=== PATIENT | female | born 1975 | race Two or more races ===

== ENCOUNTER 2017-11-14 09:22 | Outpatient (CLI) | payer OTHER ==
[~2017-11-14 09:22] MED LIST: AMARIL; GLUMETZA1000 MG; LEVSIN/SL0.125 MG PO; METFORMIN HCL500 MG; NEURONTIN300 MG; OXYCODON HCL-AP1 TA1 PO; SIMVASTATIN40 MG; TRAMADOL HCL50 MG PO; [UNRECOGNIZED DRUG - OTHER]
== END 2017-11-14 13:27 | disposition home or self-care (01) ==
LOC: TOM 09:22
DX: R10.9 Unspecified abdominal pain (principal)

== ENCOUNTER 2017-12-28 17:04 | Emergency (ER) | payer OTHER ==
[~2017-12-28] VITALS: Ht 154.9 cm; Wt 97.5 kg
[2017-12-28] MEDS ORDERED: ZETIA10 MG (17:36)
[2017-12-28] MEDS ORDERED: CLONAZEPAM1 MG (17:36)
[2017-12-28] MEDS ORDERED: TRAMADOL HCL50 MG (17:36)
== END 2017-12-28 20:22 | disposition home or self-care (01) ==
LOC: ER 17:04
DX: S93.491A Sprain of other ligament of right ankle, initial encounter (principal); X50.9XXA Other and unspecified overexertion or strenuous movements or postures, initial encounter; Y93.01 Activity, walking, marching and hiking; Y92.89 Other specified places as the place of occurrence of the external cause; Y99.8 Other external cause status

== ENCOUNTER → 2018-12-04 | Emergency (ER) | payer OTHER ==
[~2018-12-04] VITALS: Ht 154.9 cm; Wt 91.6 kg
[~2018-12-04] MED LIST changes: +CLONAZEPAM1 MG; +TRAMADOL HCL50 MG; +ZETIA10 MG
== END | disposition home or self-care (01) ==
LOC: ER 20:17
DX: R07.89 Other chest pain (principal); F41.8 Other specified anxiety disorders; E11.65 Type 2 diabetes mellitus with hyperglycemia

== ENCOUNTER 2019-09-18 08:55 | Outpatient (CLI) | payer OTHER | END 2019-09-18 08:58 | disposition home or self-care (01) | LOC: SONOGRAMA 08:55 | DX: E03.8 Other specified hypothyroidism (principal); E04.2 Nontoxic multinodular goiter ==

== ENCOUNTER 2020-03-07 15:33 | Emergency (ER) | payer OTHER ==
[~2020-03-07] VITALS: Ht 154.9 cm; Wt 95.3 kg
[2020-03-07] MEDS ORDERED: CRESTOR20 MG (15:55)
[2020-03-07] MEDS ORDERED: GRALISE600 MG (15:56)
[2020-03-07] MEDS ORDERED: LOSARTAN POTASS50 MG (15:56)
[2020-03-07] MEDS ORDERED: ZETIA10 MG (15:56)
[2020-03-07] MEDS ORDERED: GLIMEPIRIDE4 MG (15:57)
[2020-03-07] MEDS ORDERED: JANUMET 50-1,01 EACH (15:57)
[2020-03-07] MEDS ORDERED: LANTUS SOL100 UNIT/1 (15:57)
== END 2020-03-07 17:44 | disposition home or self-care (01) ==
LOC: ER 15:33
DX: M54.5 Low back pain (principal)

== ENCOUNTER 2020-04-04 07:00 | Day surgery (SDC) | payer OTHER ==
[~2020-04-04 07:00] MED LIST changes: +CRESTOR20 MG; +GLIMEPIRIDE4 MG; +GRALISE600 MG; +JANUMET 50-1,01 EACH; +LANTUS SOL100 UNIT/1; +LOSARTAN POTASS50 MG
== END 2020-04-04 13:00 | disposition home or self-care (01) ==
LOC: AMB-ENDOS 07:00 → ADM 14:00
PROVIDERS: ATTEND Colon & Rectal Surgery
DX: K63.5 Polyp of colon (principal); K64.1 Second degree hemorrhoids

== ENCOUNTER 2021-01-27 17:38 | Emergency (ER) | payer OTHER ==
[~2021-01-27] VITALS: Ht 154.9 cm; Wt 99.8 kg
== END 2021-01-27 21:02 | disposition home or self-care (01) ==
LOC: ER 17:38
DX: J22 Unspecified acute lower respiratory infection (principal); R06.02 Shortness of breath; Z20.822 Contact with and (suspected) exposure to COVID-19

== ENCOUNTER 2021-05-26 09:07 | Outpatient (CLI) | payer OTHER | END 2021-05-26 09:12 | disposition home or self-care (01) | LOC: TOM 09:07 | DX: R10.84 Generalized abdominal pain (principal); M54.5 Low back pain ==

== ENCOUNTER 2021-10-01 11:10 | Outpatient (CLI) | payer OTHER | END 2021-10-01 11:22 | disposition home or self-care (01) | LOC: MRI 11:10 | PROVIDERS: ATTEND Physical Medicine & Rehabilitation | DX: M54.59 Other low back pain (principal); M54.16 Radiculopathy, lumbar region | CPT/HCPCS: 72148 ==

== ENCOUNTER 2021-10-07 15:36 | Outpatient (CLI) | payer OTHER | END 2021-10-07 15:49 | disposition home or self-care (01) | LOC: RAD 15:36 | PROVIDERS: ATTEND Physical Medicine & Rehabilitation | DX: M16.11 Unilateral primary osteoarthritis, right hip (principal) ==

== ENCOUNTER 2022-11-01 10:30 | Outpatient (CLI) | payer OTHER | END 2022-11-01 23:00 | disposition home or self-care (01) | LOC: LAB 10:30 | PROVIDERS: ATTEND Obstetrics & Gynecology | DX: I10 Essential (primary) hypertension (principal); E03.9 Hypothyroidism, unspecified; E78.00 Pure hypercholesterolemia, unspecified; N39.0 Urinary tract infection, site not specified; Z11.4 Encounter for screening for human immunodeficiency virus [HIV]; Z12.11 Encounter for screening for malignant neoplasm of colon; E55.9 Vitamin D deficiency, unspecified; Z21 Asymptomatic human immunodeficiency virus [HIV] infection status; R79.9 Abnormal finding of blood chemistry, unspecified; R79.89 Other specified abnormal findings of blood chemistry ==